=== PATIENT | male | born 1980 | race Caucasian/White ===

== ENCOUNTER 2019-10-19 12:50 | Emergency (ER) | payer SELFPAY ==
--- NOTE | 2019-10-19 13:45 | UC ---
Back Pain HPI - HPI Summary HPI Summary: 39-year-old male who awakened this morning and he felt some fatigue and low back pain. He has had no recent injury. He denies any fever or chills. He states he had a scratchy throat one or 2 days ago but that's totally resolved. Upon my speaking with him his back pain totally resolved. He denies any nausea vomiting or diarrhea. He denies a difficulty urinating. He lives with a female who insists that he be tested for Covid 19. At this juncture he does not have any concerning symptoms. - History of Current Complaint Chief Complaint: UCGeneralIllness Stated Complaint: BACKPAIN/TIRED/COUGH Time Seen by Provider: 10/19/19 13:28 Hx Obtained From: Patient Onset/Duration: Gradual Onset, Lasting Hours Timing: Intermittent - Patient states the back pain has completely resolved. Severity Initially: Mild Severity Currently: None Pain Intensity: 2 Character: Aching - Patient felt the back pain this morning however states it completely resolved. Aggravating Factor(s): Nothing Alleviating Factor(s): Rest Associated Signs And Symptoms: Positive: Negative. Negative: Fever, Weakness, Numbness, Tingling, Abdominal Pain, Flank Pain, Bladder Incontinence, Bowel Incontinence, Pain with Weight Bearing - Allergies/Home Medications Allergies/Adverse Reactions: Allergies Allergy/AdvReac Type Severity Reaction Status Date / Time No Known Allergies Allergy Verified 10/19/19 13:19 Home Medications: Home Medications Fluticasone/Vilanterol MDI(NF) [Breo Ellipta MDI 200/25(NF)] 1 puff INH QAM [History Confirmed 10/19/19] PMH/Surg Hx/FS Hx/Imm Hx Previously Healthy: Yes - Surgical History Surgical History: None - Family History Known Family History: Positive: Unknown - Social History Lives: With Family Alcohol Use: Rare Substance Use Type: None Smoking Status (MU): Never Smoked Tobacco Review of Systems All Other Systems Reviewed And Are Negative: Yes Constitutional: Positive: Fatigue - Fatigue upon awakening this morning. Musculoskeletal: Positive: Other: - Low back pain upon awakening this morning which has completely resolved. Is Patient Immunocompromised?: No Physical Exam Triage Information Reviewed: Yes Appearance: Well-Appearing, No Pain Distress, Well-Nourished Vital Signs Reviewed: Yes Eyes: Positive: Conjunctiva Clear ENT: Positive: Hearing grossly normal, Pharynx normal, TMs normal, Uvula midline Neck exam: Normal Respiratory Exam: Normal Respiratory: Positive: Lungs clear, Normal breath sounds, No respiratory distress, No accessory muscle use Cardiovascular: Positive: RRR, No Murmur, Pulses Normal, Brisk Capillary Refill Musculoskeletal Exam: Normal Musculoskeletal: Positive: Other: - Back is nontender. Negative straight leg raise Neurological Exam: Normal Psychological Exam: Normal Skin Exam: Normal Back Pain Course/Dx - Course Course Of Treatment: The patient is comfortable here. His symptoms have resolved. He was given information for drive-through COVID-19 testing. - Differential Dx/Diagnosis Provider Diagnosis: Low back pain Discharge ED - Sign-Out/Discharge Documenting (check all that apply): Patient Departure All imaging exams completed and their final reports reviewed: No Studies - Discharge Plan Condition: Good Disposition: HOME Referrals: [facility] [Outside] No Primary Care Phys,NOPCP [Primary Care Provider] - Additional Instructions: Call [phone] to call ahead for COVID testing or you can register online at [email or web address] Follow-up at [facility] if you have any worsening symptoms. - Billing Disposition and Condition Condition: GOOD Disposition: Home
[2019-10-19 13:46] VITALS: BP 118/80
== END 2019-10-19 13:50 | disposition home or self-care (01) ==
LOC: UCCORT 12:50
DX: M54.5 Low back pain (principal); R53.83 Other fatigue
CPT/HCPCS: 99201; G0463